=== PATIENT | female | born 1995 ===

== ENCOUNTER → 2024-02-08 | Outpatient (REF) | payer OTHER ==
[2024-02-08 18:21] LABS: CREATININE, URINE 345.2 MG/DL; MAU/CREAT RATIO 41.7 MCG/MG (0.0-30.0)
== END ==
LOC: M LAB REF 17:08
PROVIDERS: ATTEND Nurse Practitioner Family
DX: E11.65 Type 2 diabetes mellitus with hyperglycemia (principal)

== ENCOUNTER 2024-06-21 22:43 | Emergency (ER) | payer OTHER ==
[~2024-06-21] VITALS: Ht 160 cm; Wt 50.0 kg
[2024-06-21 22:45] VITALS: BP 134/75; TEMP 97.4; O2SAT 100
== END 2024-06-22 02:24 | disposition left against medical advice (07) ==
LOC: M ED 22:43
DX: Z53.21 Procedure and treatment not carried out due to patient leaving prior to being seen by health care provider (principal)